=== PATIENT | female | born 1950 | race Caucasian/White ===

== ENCOUNTER 2021-03-10 20:13 | Emergency (ER) | payer MEDICARE ==
[~2021-03-10] VITALS: Ht 160 cm; Wt 68.2 kg
[~2021-03-10 20:13] MED LIST: CARI350T PO; HYDR-4383 PO
[2021-03-10 21:03] LABS: BASOPHILS % (AUTO) 0.3 % (0-1); EOSINOPHILS # (AUTO) 0.2 X10'3 (0-0.9); EOSINOPHILS % (AUTO) 2.3 % (0-6); HEMATOCRIT 36.2 % (35.0-45.0); HEMOGLOBIN 12.4 g/dl (12.0-16.0); LYMPHOCYTES # (AUTO) 2.9 X10'3 (1.1-4.8); MEAN CORPUSCULAR HEMOGLOBIN 29.4 PG (27.0-31.0); MEAN CORPUSCULAR HGB CONC 34.3 g/dL (33.0-36.5); MEAN CORPUSCULAR VOLUME 85.8 FL (78-98); MEAN PLATELET VOLUME 6.9 FL (7.4-10.4); MONOCYTES # (AUTO) 0.8 X10'3 (0-0.9); MONOCYTES % (AUTO) 8.6 % (2-12); NEUTROPHILS # (AUTO) 5.7 X10'3 (1.8-7.7); NEUTROPHILS % (AUTO) 58.8 % (42-75); PLATELET COUNT 227 X10'3 (140-440); RED BLOOD COUNT 4.22 X10'6 (4.20-5.60); RED CELL DISTRIBUTION WIDTH 16.2 % (11.5-14.5); WHITE BLOOD COUNT 9.6 X10'3 (4.5-11.0)
[2021-03-10 21:06] LABS: CLARITY,URINE SLIGHTLY CLOUDY (Clear); COLOR,URINE YELLOW (Yellow); GLUCOSE, URINE NEGATIVE (Neg); KETONES,URINE NEGATIVE (Neg); LEUKOCYTE ESTERASE ,URINE NEGATIVE (Neg); NITRITES, URINE NEGATIVE (Neg); OCCULT BLOOD,URINE LARGE (Neg); PROTEIN,URINE TRACE mg/dl (Neg); UROBILINOGEN,URINE 0.2 E.U/dL (0.2-1.0)
[2021-03-10 21:07] LABS: UA COLLECTION TYPE CLN CATCH MIDSTREAM
[2021-03-10 21:13] LABS: RBC,URINE TNTC /HPF (0-2); WBC,URINE 0-4 /HPF (0-4)
[2021-03-10 21:14] LABS: BACTERIA,URINE NONE SEEN /HPF (Neg); CAL OXALATE CRYSTALS 1+ /HPF (NEGATIVE); FINE GRANULAR CAST 0-3 /LPF (NEGATIVE); MUCUS STRANDS FEW /LPF (Neg); SQUAMOUS EPITHELIAL CELL,UR FEW /LPF (FEW)
[2021-03-10 21:18] LABS: ALANINE AMINOTRANSFERASE 15 U/L (12-78); ALBUMIN 3.9 G/DL (3.4-5.0); ALKALINE PHOSPHATASE 118 IU/L (46-116); ANION GAP 13 (8-16); ASPARTATE AMINO TRANSFERASE 6 U/L (10-37); BILIRUBIN,TOTAL 0.3 MG/DL (0.1-1.0); BLOOD UREA NITROGEN 26 MG/DL (7-18); BUN/CREATININE RATIO 32.5 (6.6-38.0); CALCIUM 9.2 MG/DL (8.5-10.1); CHLORIDE 107 MMOL/L (99-107); GLUCOSE 106 MG/DL (70-104); LIPASE 147 U/L (73-393); POTASSIUM 3.6 MMOL/L (3.5-5.1); SODIUM 145 MMOL/L (135-145); TOTAL CARBON DIOXIDE 25.2 MMOL/L (24-32); TOTAL PROTEIN 7.8 G/DL (6.4-8.2); eGFR 71 ML/MIN
[2021-03-10] MEDS ORDERED: acetaminophen 325mg tablet PO ONE (23:20)
[2021-03-11] MEDS ORDERED: ketorolac trometh inj. 60 MG/2 ML VIAL IM ONE (01:10)
[2021-03-11] MEDS ORDERED: HYDROcodone/acetaminophen 5mg/325mg tablet PO ONE (01:10)
[2021-03-11] MEDS ORDERED: ondansetron 4mg rapidly disintigrating tab PO ONE (01:10)
[2021-03-11] MEDS ORDERED: HYDR-3965 PO (01:46)
[2021-03-11] MEDS ORDERED: ONDA4TAB6 PO (01:46)
[2021-03-11 02:07] VITALS: BP 142/75
== END 2021-03-11 02:09 | disposition home or self-care (01) ==
LOC: ER 20:14
DX: N20.0 Calculus of kidney (principal); I31.3 Pericardial effusion (noninflammatory); Z88.2 Allergy status to sulfonamides; Z79.899 Other long term (current) drug therapy
CPT/HCPCS: 36415; 74176; 80053; 81001; 83690; 85025; 96372; 99285; J1885; 99284

== ENCOUNTER 2023-03-16 05:25 | Day surgery (SDC) | payer MEDICARE, MEDICAID ==
[2023-03-11 12:38] LABS: BASOPHILS % (AUTO) 0.4 % (0-1); EOSINOPHILS # (AUTO) 0.2 X10'3 (0-0.9); EOSINOPHILS % (AUTO) 2.2 % (0-6); LYMPHOCYTES # (AUTO) 2.7 X10'3 (1.1-4.8); LYMPHOCYTES % (AUTO) 26.1 % (21-51); MEAN CORPUSCULAR HEMOGLOBIN 29.6 PG (27.0-31.0); MEAN CORPUSCULAR HGB CONC 34.1 g/dL (33.0-36.5); MEAN CORPUSCULAR VOLUME 86.9 FL (78-98); MEAN PLATELET VOLUME 6.9 FL (7.4-10.4); MONOCYTES # (AUTO) 0.9 X10'3 (0-0.9); MONOCYTES % (AUTO) 8.8 % (2-12); NEUTROPHILS # (AUTO) 6.4 X10'3 (1.8-7.7); NEUTROPHILS % (AUTO) 62.5 % (42-75); PRE OP PLATELET COUNT 271 X10'3 (140-440); RED BLOOD COUNT 4.38 X10'6 (4.20-5.60); RED CELL DISTRIBUTION WIDTH 14.6 % (11.5-14.5)
[2023-03-11 12:47] LABS: PRE OP PROTIME 11.1 SECONDS (9.0-12.0)
[2023-03-11 12:49] LABS: ALBUMIN 3.8 G/DL (3.4-5.0); ALBUMIN/GLOBULIN RATIO 0.9 (1.1-1.5); ALKALINE PHOSPHATASE 131 IU/L (46-116); BLOOD UREA NITROGEN 24 MG/DL (7-18); BUN/CREATININE RATIO 32.9 (10.0-20.0); CALCIUM 9.5 MG/DL (8.5-10.1); CHLORIDE 106 MMOL/L (99-107); CREATININE 0.73 MG/DL (0.40-0.90); PRE OP ALT 25 U/L (30-65); PRE OP ANION GAP 10 (8-16); PRE OP AST 23 U/L (10-37); PRE OP BILIRUB, TOTAL 0.4 MG/DL (0.0-1.0); PRE OP POTASSIUM 4.1 MMOL/L (3.4-5.1); PRE OP SODIUM 141 MMOL/L (135-145); TOTAL CARBON DIOXIDE 24.8 MMOL/L (24-32); eGFR 78 ML/MIN
[2023-03-11 12:58] LABS: PRE OP GLUCOSE 92 MG/DL (70-104)
[~2023-03-16] VITALS: Ht 160 cm; Wt 68.0 kg
[2023-03-16] VITALS (18 sets, daily range): BP systolic 119–140; BP diastolic 62–73; PULSE 57–71; RESP 8–22; TEMP 98; O2SAT 95–100
[~2023-03-16 05:25] MED LIST changes: -CARI350T PO; -HYDR-4383 PO; +SERT-433 PO; +ringers solution, lacted 1,000 ML IV SCH
[2023-03-16] MEDS ORDERED: famotidine 20mg tablet PO ONE (05:30)
[2023-03-16] MEDS ORDERED: vancomycin/NS 1 GM in NS 250 ML IV ONE (05:30)
--- NOTE | 2023-03-16 05:35 | NUR ---
BRINGS HPIC WHEN ARRIVES DAY OF SURGERY Addendum: 03/16/23 at 0652 by Codi Jerez RN Amended: Links added.
[2023-03-16] MEDS ORDERED: BUPIVAcaine/PF 2.5 mg/ml (0.25%) 30ml vial ONE (06:45)
[2023-03-16] MEDS ORDERED: BUPIVAcaine/PF 2.5 mg/ml (0.25%) 30ml vial IJ ONE (07:00)
[2023-03-16] MEDS ORDERED: sevoflurane 250ml liquid IH ONE (07:31)
[2023-03-16] MEDS ORDERED: ondansetron/PF 4mg/2ml inj ONE ×2 (07:31→08:47)
[2023-03-16] MEDS ORDERED: fentaNYL/PF 50MCG/1 ML 2ML syringe ONE (07:33)
[2023-03-16] MEDS ORDERED: propofol inj 20 ML IV ONE (07:34)
[2023-03-16] MEDS ORDERED: midazolam 1 mg/ML 2ml injection ONE (07:34)
[2023-03-16] MEDS ORDERED: dexamethasone sod phosphate 4mg/ml inj. ONE (07:48)
[2023-03-16] MEDS ORDERED: ringers solution, lacted 1,000 ML IV SCH (08:30)
[2023-03-16] MEDS ORDERED: proCHLORperazine 10 MG/2 ml inj IV PRN (08:30)
[2023-03-16] MEDS ORDERED: ondansetron/PF 4mg/2ml inj IV PRN ×2 (08:30→09:35)
[2023-03-16] MEDS ORDERED: morphine 4 MG/ML inj SYRINge IV PRN (08:30)
[2023-03-16] MEDS ORDERED: morphine 2 MG/ML inj. syringe IV PRN (08:30)
[2023-03-16] MEDS ORDERED: meperidine/PF 25mg/ml syringe IV PRN ×3 (08:30)
[2023-03-16] MEDS ORDERED: acetaminophen 1,000mg/100ml IV 100 ML IV ONE (08:47)
[2023-03-16] MEDS ORDERED: potassium CL 20mEq in D5-1/2NS 1,000 ML IV SCH (09:35)
[2023-03-16] MEDS ORDERED: naloxone 0.4 mg/ml inj IV PRN ×4 (09:35→09:50)
--- NOTE | 2023-03-16 09:36 | NUR ---
Received from OR via [facility] TO [facility], accompanied by Anesthesiologist PHAM and report given by Anesthesiolgist. PATIENT PRESENTS ON 6L MASK WITH SPO2 100%. VSS. LR RUNNING AT 100ML/HR, FEDERICO DRAIN TO LEFT CHEST, NO KINKS OR DEPENDANT LOOPS. WILL CONTINUE TO MONITOR.
[2023-03-16] MEDS ORDERED: HYDROmorph/NS 0.2 mg/ml PCA 100 ML IV SCH (09:50)
[2023-03-16] MEDS ORDERED: PCA WASTE DOCUMENTATION 1 MG ML MC SCH ×2 (10:30)
--- NOTE | 2023-03-16 12:46 | NUR ---
PATIENT READY FOR D/C PER MD ORDERS. REVIEWED D/C INSTRUCTIONS WITH PATIENT AND EACH OF THE DAUGHTERS PER HER REQUEST; EDUCATION RE: FEDERICO DRAIN AND GAVE ADDITIONAL DRAINAGE SHEET TO KEEP OUTPUT OF FEDERICO. PATIENT WAS ABLE TO AMBULATE TO BATHROOM AND BACK WITH STANDBY SUPERVISION. HOME HEALTH WILL BE SET UP BY CM AND CONTACT PATIENT DIRECT. THEY HAVE VERBALIZED UNDERSTANDING. PATIENT D/C HOME WITH ALL BELONGINGS AND TRANSFERRED TO PRIVATE VEHICLE IN W/C WITHOUT INCIDENCE. FAMILY WAITING IN CAR TO DRIVE HER HOME.
== END 2023-03-16 12:46 | disposition home or self-care (01) ==
LOC: PAS 05:25
PROVIDERS: ATTEND Surgery
DX: D05.12 Intraductal carcinoma in situ of left breast (principal); M19.90 Unspecified osteoarthritis, unspecified site; Z88.2 Allergy status to sulfonamides; Z79.899 Other long term (current) drug therapy; Z98.890 Other specified postprocedural states; Z79.01 Long term (current) use of anticoagulants
CPT/HCPCS: 19303; 36415; 80053; 82948; 85025; 85610; 85730; J0131; J1100; J2250; J2405; J2704; J3010; J3370; J3490; J7030; J7120; Z7506; Z7508; Z7512; A4215; A4618; A6449; A7000